=== PATIENT | female | born 1990 | race African-American/Black ===

== ENCOUNTER 2017-04-27 17:29 | Emergency (ER) | payer OTHER ==
[2017-04-27 18:04] VITALS: BP 114/77; PULSE 77; TEMP 97.9; BMI 28.3
--- NOTE | 2017-04-27 18:05 | PDOC ---
Rapid Medical Evaluation Time Seen by Provider: 04/27/17 18:03 Medical Evaluation: Allergies Allergy/AdvReac Type Severity Reaction Status Date / Time ciprofloxacin [From Cipro] AdvReac Verified 09/16/15 18:03 ciprofloxacin HCl AdvReac Verified 09/16/15 18:03 [From Cipro] 04/27/17 18:03 The patient presents with a chief complaint of:~abd pain with + home preg and does not know last menses. I have performed a brief in-person evaluation of this patient; Pertinent physical exam findings: ambulatory, in no respiratory distress ~I have ordered the following:~serum hcg, ua, The patient will proceed to the ED for further evaluation
[2017-04-27 18:43] LABS: URINE APPEARANCE CLOUDY; URINE BILIRUBIN NEGATIVE (NEGATIVE); URINE BLOOD NEGATIVE (NEGATIVE); URINE COLOR YELLOW; URINE GLUCOSE (UA) NEGATIVE (NEGATIVE); URINE KETONE TRACE (NEGATIVE); URINE NITRITE NEGATIVE (NEGATIVE); URINE PROTEIN NEGATIVE (NEGATIVE); URINE UROBILINOGEN NEGATIVE mg/dL (0.2-1.0)
[2017-04-27 18:44] LABS: URINE LEUK ESTERASE 3+ (NEGATIVE)
[2017-04-27 18:49] LABS: EPI CELLS MANY /HPF (FEW); URINE BACTERIA RARE /hpf (NONE SEEN); URINE HYALINE CAST 2 /lpf; URINE MUCUS FEW
--- NOTE | 2017-04-27 19:55 | PDOC ---
History of Present Illness <Asim Nolandica - Last Filed: 04/27/17 21:29> <Ivania Durham - Last Filed: 04/28/17 08:58> - General Chief Complaint: Pain Stated Complaint: PAIN () Time Seen by Provider: 04/27/17 18:03 Past History - Past Medical History COPD: No Psychiatric Problems: Yes (ANXIETY) - Immunization History Td Vaccination: Yes Immunization Up to Date: Yes - Suicide/Smoking/Psychosocial Hx Smoking Status: No Smoking History: Former smoker Years of Tobacco Use: 0 Have you smoked in the past 12 months: Yes Number of Cigarettes Smoked Daily: 4 If you are a former smoker, when did you quit?: 2 MONTHS Cigars Per Day: 0 Information on smoking cessation initiated: Yes 'Breaking Loose' booklet given: 08/28/15 Hx Alcohol Use: No Drug/Substance Use Hx: No Substance Use Type: Alcohol <Asim Nolandica - Last Filed: 04/27/17 21:29> <Ivania Durham - Last Filed: 04/28/17 08:58> - Past Medical History Allergies/Adverse Reactions: Allergies Allergy/AdvReac Type Severity Reaction Status Date / Time ciprofloxacin [From Cipro] AdvReac Verified 04/27/17 18:04 ciprofloxacin HCl AdvReac Verified 04/27/17 18:04 [From Cipro] Home Medications: Ambulatory Orders clonazePAM [Klonopin -] 0.5 mg PO BID 09/16/15 Nitrofurantoin Monohyd/M-Cryst [Macrobid -] 100 mg PO BID #14 capsule 04/27/17 Nitrofurantoin Monohyd/M-Cryst [Macrobid -] 100 mg PO BID #14 capsule 04/28/17 *Physical Exam - Vital Signs Last Vital Signs Temp Pulse Resp BP Pulse Ox 97.9 F 77 18 114/77 100 04/27/17 18:00 04/27/17 18:00 04/27/17 18:00 04/27/17 18:00 04/27/17 18:00 <Asim Nolandica - Last Filed: 04/27/17 21:29> - Vital Signs Last Vital Signs Temp Pulse Resp BP Pulse Ox 97.9 F 77 18 114/77 100 04/27/17 18:00 04/27/17 18:00 04/27/17 18:00 04/27/17 18:00 04/27/17 18:00 <Ivania Durham - Last Filed: 04/28/17 08:58> ED Treatment Course - ADDITIONAL ORDERS Additional order review: Laboratory Results 04/27/17 04/27/17 18:12 18:12 Beta HCG, Quant 3694.4 Urine Color Yellow Urine Appearance Cloudy Urine pH 5.0 Ur Specific [place] 1.029 Urine Protein Negative Urine Glucose (UA) Negative Urine Ketones Trace H Urine Blood Negative Urine Nitrite Negative Urine Bilirubin Negative Urine Urobilinogen Negative Ur Leukocyte Esterase 3+ H Urine WBC (Auto) 38 Urine RBC (Auto) 2 Ur Epithelial Cells Many Urine Bacteria Rare Hyaline Casts 2 Urine Mucus Few - RADIOLOGY Radiology Studies Ordered: Category Date Time Status TRANSVAGINAL US PREG [US] Stat Ultrasound 04/27/17 19:48 Ordered <Maria Luisa Noland - Last Filed: 04/27/17 21:29> Medical Decision Making - Medical Decision Making 04/27/17 20:12 26 y.o. female with 2 day h/o abdominal cramping w/o vaginal bleeding <Maria Luisa Noland - Last Filed: 04/27/17 21:29> *DC/Admit/Observation/Transfer - Discharge Dispostion Admit: No <Maria Luisa Noland - Last Filed: 04/27/17 21:29> <Ivania Durham - Last Filed: 04/28/17 08:58> Diagnosis at time of Disposition: Abdominal cramping - Discharge Dispostion Disposition: HOME Condition at time of disposition: Good - Prescriptions Prescriptions: Nitrofurantoin Monohyd/M-Cryst [Macrobid -] 100 mg PO BID #14 capsule Nitrofurantoin Monohyd/M-Cryst [Macrobid -] 100 mg PO BID #14 capsule - Referrals Referrals: Lisa Bui [Primary Care Provider] - - Patient Instructions Additional Instructions: Please follow up with your [facility] in the next 48 hours for a repeat ultrasound and blood tests. A copy of your ultrasound has been provided to you. Please take this to your follow-up appointment. Your urine showed a small infection. We have prescribed an antibiotic. Please take the entire prescribed course. Do not take any more Xanax, as this can be harmful to the baby. Return to the ED for any new/worsening/concerning symptoms. - Post Discharge Activity
--- NOTE | 2017-04-27 20:03 | PDOC ---
Attending Attestation - Resident Resident Name: Maria Luisa Noland - ED Attending Attestation I have performed the following: I have examined & evaluated the patient, The case was reviewed & discussed with the resident, I agree w/resident's findings & plan, Exceptions are as noted - HPI HPI: 04/27/17 19:59 26 F , with h/o anxiety, presenting to ED with abdominal cramps x 1 day. Pt states that she took a test 2 days ago that was positive. Today began to experience diffuse abdominal cramps, denies any vaginal bleeding. Pt's LMP was about 8 weeks ago. Denies F/C. Denies dysuria. Denies vaginal discharge. Of note, pt was previously on xanax for anxiety but stopped taking it 2 days ago when she found out she was . - Physicial Exam PE: 04/27/17 20:02 "GENERAL: Awake, alert, and fully oriented, in no acute distress HEAD: No signs of trauma EYES: PERRLA, EOMI, sclera anicteric, conjunctiva clear ENT: Auricles normal inspection, hearing grossly normal, nares patent, oropharynx clear without exudates. Moist mucosa NECK: Nontender, no stepoffs, Normal ROM, supple, no lymphadenopathy, JVD, or masses LUNGS: Breath sounds equal, clear to auscultation bilaterally. No wheezes, and no crackles HEART: Regular rate and rhythm, normal S1 and S2, no murmurs, rubs or gallops ABDOMEN: Soft, nontender, normoactive bowel sounds. No guarding, no rebound. No masses EXTREMITIES: Normal range of motion, no edema. No clubbing or cyanosis. No cords, erythema, or tenderness NEUROLOGICAL: Cranial nerves II through XII intact. 5/5 strength and sensation in all extremities, Normal speech, normal gait, normal cerebellar function SKIN: Warm, Dry, normal turgor, no rashes or lesions noted. : os closed, no bleeding, no CMT, no adnexal masses - Medical Decision Making 04/27/17 20:02 26 F @ 8 weeks by LMP, presenting with abdominal cramps. Will r/o ectopic and UTI. Pt with benign abdomen, no RLQ tenderness to suggest acute appy. - Labs, UA, UCx, HCG - TVUS 04/27/17 21:25 TVUS shows gestational sac without yolk sac or pole. Pt with UTI Pt counseled on need for repeat blood tests and US in 48 hours. Also counseled on importance of refraining from taking Xanax. Will DC with OB f/u and macrobid for UTI. Pt well appearing with normal vitals, clinically stable for DC. I discussed the physical exam findings, ancillary test results and final diagnoses with the patient. I answered all of the patient's questions. The patient was satisfied with the care received and felt comfortable with the discharge plan and treatment plan. The patient agrees to follow up with the primary care physician within 24-72 hours.
[2017-04-27] MEDS ORDERED: ACETAMINOPHEN 500 MG TABLET (FP) PO ONE (21:34)
== END 2017-04-27 21:37 | disposition home or self-care (01) ==
LOC: JER 17:29
DX: O26.891 Other specified pregnancy related conditions, first trimester (principal); Z3A.00 Weeks of gestation of pregnancy not specified; R10.2 Pelvic and perineal pain
CPT/HCPCS: 36415; 76817-TC; 81003; 81015; 84702; 86850; 86900; 86901; 99283-25

== ENCOUNTER 2020-12-27 12:37 | Inpatient (IN) | payer OTHER ==
[2020-12-27] MEDS ORDERED: SODIUM CHLORIDE 2,449 ML IV ONE (13:03)
[2020-12-27] MEDS ORDERED: ACETAMINOPHEN 1000 MG/100 ML VIAL IVPB ONE (13:06)
[2020-12-27] MEDS ORDERED: ACETAMINOPHEN INJECTION 100 ML IVPB ONE ×2 (13:12→22:32)
[2020-12-27 13:47] LABS: INR 1.32 (0.83-1.09); PROTHROMBIN TIME (PATIENT) 14.8 SEC (9.7-13.0)
[2020-12-27 13:49] LABS: ACTIVATED PTT 27.6 SECONDS (25.2-36.5)
[2020-12-27 13:52] LABS: HEMATOCRIT 35.8 % (32.4-45.2); HEMOGLOBIN 11.6 GM/dL (10.7-15.3); MCH 28.3 pg (25.7-33.7); MCHC 32.4 g/dl (32.0-36.0); MEAN CELL VOLUME 87.5 fl (80-96); MEAN PLT VOLUME 9.6 fl (7.5-11.1); PLATELET COUNT 221 10^3/uL (134-434); RDW 14.1 % (11.6-15.6); WHITE BLOOD COUNT 18.1 K/mm3 (4.0-10.0)
[2020-12-27 13:55] LABS: CHLORIDE 105 mmol/L (98-107); SODIUM 138 mmol/L (136-145)
[2020-12-27 13:57] LABS: CALCIUM 8.8 mg/dL (8.5-10.1)
[2020-12-27 13:58] LABS: ALBUMIN 3.8 g/dl (3.4-5.0); ANION GAP 8 MMOL/L (8-16); BLOOD UREA NITROGEN 13.1 mg/dL (7-18); CO2 24 mmol/L (21-32); GLUCOSE,RANDOM 89 mg/dL (74-106)
[2020-12-27 14:01] LABS: SGOT/AST 15 U/L (15-37); SGPT/ALT 15 U/L (13-61)
[2020-12-27 14:02] LABS: BILIRUBIN,TOTAL 0.5 mg/dL (0.2-1)
[2020-12-27 14:03] LABS: TOT PROT 7.4 g/dl (6.4-8.2)
[2020-12-27 14:04] LABS: ALK PHOS 52 U/L (45-117)
[2020-12-27] MEDS ORDERED: CLINDAMYCIN 900 MG PREMIX IVPB 900 MG/50 ML BAG IVPB ONE ×3 (14:18→21:17)
[2020-12-27] MEDS ORDERED: SODIUM CHLORIDE 0.9% 500 ML INFUS.BAG IV ONE (14:25)
[2020-12-27 14:28] LABS: ANISOCYTOSIS 0; HELMET CELLS 0; HOWELL-JOLLY BODIES 0; MACROCYTOSIS 0; OVALOCYTE 0; PLATELET ESTIMATE NORMAL; ROULEAU 0; SICKELED CELLS 0; TARGET CELLS 0; TEAR DROP CELLS 0; TOXIC GRANULATION 0
[2020-12-27] MEDS ORDERED: WATER IVPB ONE (14:45)
[2020-12-27] MEDS ORDERED: DEXTROSE 5% IVPB ONE (14:45)
[2020-12-27] MEDS ORDERED: GENTAMICIN IVPB ONE (14:45)
[2020-12-27 16:09] LABS: URINE APPEARANCE CLEAR; URINE BILIRUBIN NEGATIVE (NEGATIVE); URINE COLOR YELLOW; URINE GLUCOSE (UA) NEGATIVE (NEGATIVE); URINE KETONE NEGATIVE (NEGATIVE); URINE LEUK ESTERASE NEGATIVE (NEGATIVE); URINE NITRITE NEGATIVE (NEGATIVE); URINE PROTEIN NEGATIVE (NEGATIVE); URINE UROBILINOGEN 0.2 mg/dL (0.2-1.0)
[2020-12-27] MEDS ORDERED: GENTAMICIN INJECTION 120 MG in DEXTROSE 5%-WATER - 100 ML IVPB SCH ×2 (20:45→21:30)
[2020-12-27] MEDS ORDERED: GENTAMICIN SO4 80 MG/2 ML VIAL ONE (21:15)
[2020-12-27] MEDS ORDERED: GENTAMICIN 80 MG PREMIXED IVPB 80 MG/100 ML BAG IVPB ONE (21:16)
[2020-12-27] MEDS: SODIUM CHLORIDE 1,000 ML IV SCH (21:23)
[2020-12-27] MEDS ORDERED: clonazePAM 0.5 MG TABLET PO PRN (22:14)
[2020-12-27] MEDS: CLINDAMYCIN 900 MG PREMIX IVPB 900 MG/50 ML BAG IVPB SCH (22:15)
[2020-12-27] MEDS ORDERED: morphine SULFATE 4 MG/ML VIAL ONE (22:23)
[2020-12-27] MEDS ORDERED: clonazePAM 0.5 MG TABLET ONE (22:23)
[2020-12-27] MEDS: morphine SULFATE 4 MG/ML VIAL IVPUSH PRN (22:35)
[2020-12-27] MEDS: ACETAMINOPHEN 1000 MG/100 ML VIAL IVPB PRN (22:36)
[2020-12-28] MEDS: CLINDAMYCIN 900 MG PREMIX IVPB 900 MG/50 ML BAG IVPB SCH ×2 (03:05→11:10)
[2020-12-28] MEDS ORDERED: CLINDAMYCIN 900 MG PREMIX IVPB 900 MG/50 ML BAG IVPB ONE ×2 (03:57→10:25)
[2020-12-28] MEDS ORDERED: morphine SULFATE 4 MG/ML VIAL ONE ×4 (06:34→21:10)
[2020-12-28] MEDS: morphine SULFATE 4 MG/ML VIAL IVPUSH PRN ×4 (06:38→21:25)
[2020-12-28] MEDS ORDERED: ACETAMINOPHEN INJECTION 100 ML IVPB ONE ×2 (06:51→13:41)
[2020-12-28] MEDS: ACETAMINOPHEN 1000 MG/100 ML VIAL IVPB PRN ×2 (06:55→13:44)
[2020-12-28] MEDS ORDERED: GENTAMICIN INJECTION 120 MG in DEXTROSE 5%-WATER - 100 ML IVPB SCH ×2 (10:00→15:00)
[2020-12-28] MEDS ORDERED: ENOXAPARIN NA (PORCINE) 40 MG/0.4 ML DISP.SYRIN SQ ONE (10:26)
[2020-12-28] MEDS: ENOXAPARIN NA (PORCINE) 40 MG/0.4 ML DISP.SYRIN SQ SCH (11:00)
[2020-12-28] MEDS ORDERED: CEFOTETAN DISODIUM 2 GM in DEXTROSE 5%-WATER - 100 ML IVPB SCH (12:45)
[2020-12-28] MEDS ORDERED: DOXYCYCLINE HYCLATE 100 MG VIAL ONE ×2 (13:20→22:14)
[2020-12-28 13:25] LABS: CALCIUM 7.6 mg/dL (8.5-10.1)
[2020-12-28 13:26] LABS: BLOOD UREA NITROGEN 6.5 mg/dL (7-18); MAGNESIUM 1.7 mg/dL (1.8-2.4)
[2020-12-28 13:29] LABS: CREATININE 0.9 mg/dL (0.55-1.3); PHOSPHOROUS 1.6 mg/dL (2.5-4.9)
[2020-12-28 13:30] LABS: BILIRUBIN,TOTAL 0.3 mg/dL (0.2-1); TOT PROT 6.1 g/dl (6.4-8.2)
[2020-12-28] MEDS: DOXYCYCLINE INJECTION 100 MG in DEXTROSE 5%-WATER 100 ML IVPB SCH ×2 (13:31→22:16)
[2020-12-28 13:39] LABS: HEMOGLOBIN 11.1 GM/dL (10.7-15.3); MCH 28.6 pg (25.7-33.7); MCHC 32.5 g/dl (32.0-36.0); MEAN PLT VOLUME 10.6 fl (7.5-11.1); PLATELET COUNT 170 10^3/uL (134-434); RBC 3.87 M/mm3 (3.60-5.2); RDW 14.3 % (11.6-15.6); WHITE BLOOD COUNT 15.4 K/mm3 (4.0-10.0)
[2020-12-28 14:19] LABS: HIV INTERPRETATION NEGATIVE (NEGATIVE)
[2020-12-28] MEDS ORDERED: MAGNESIUM OXIDE 400 MG TABLET (FP) PO ONE (14:24)
[2020-12-28] MEDS ORDERED: POTASSIUM CHLORIDE TABS 20 MEQ TABLET.ER (FP) PO ONE ×2 (14:24→16:28)
[2020-12-28 14:54] LABS: ANISOCYTOSIS 0; HELMET CELLS 0; HOWELL-JOLLY BODIES 0; MACROCYTOSIS 0; OVALOCYTE 0; PLATELET ESTIMATE NORMAL; ROULEAU 0; SICKELED CELLS 0; TARGET CELLS 0; TEAR DROP CELLS 0; TOXIC GRANULATION 0
[2020-12-28] MEDS ORDERED: CEFOXITIN SODIUM 2 GM in DEXTROSE 5%-WATER 100 ML IVPB SCH (15:00)
[2020-12-28] MEDS ORDERED: MAGNESIUM OXIDE 400 MG TABLET (FP) ONE (16:29)
[2020-12-28] MEDS: CEFOXITIN SODIUM 2 GM in DEXTROSE 5%-WATER 100 ML IVPB SCH ×2 (17:41→22:51)
[2020-12-28] MEDS ORDERED: ACETAMINOPHEN 325 MG TABLET (FP) ONE (20:43)
[2020-12-28] MEDS: SODIUM CHLORIDE 1,000 ML IV SCH (20:53)
[2020-12-28] MEDS: ACETAMINOPHEN 325 MG TABLET (FP) PO PRN (20:53)
[2020-12-28] MEDS ORDERED: DEXTROSE 5%-WATER 100 ML IVPB ONE (22:14)
[2020-12-28] MEDS: SENNOSIDES 8.6MG TABLET (FP) PO SCH ×2 (22:17→22:21)
[2020-12-28] MEDS ORDERED: SODIUM CHLORIDE 500 ML IV STA (22:33)
[2020-12-28 22:40] VITALS: BMI 26.3
[2020-12-29] MEDS ORDERED: IBUPROFEN 400 MG TABLET (FP) PO ONE ×2 (01:00→23:17)
[2020-12-29] MEDS: morphine SULFATE 4 MG/ML VIAL IVPUSH PRN ×3 (01:24→19:54)
[2020-12-29] MEDS: ACETAMINOPHEN 325 MG TABLET (FP) PO PRN ×3 (02:59→19:57)
[2020-12-29] MEDS: CEFOXITIN SODIUM 2 GM in DEXTROSE 5%-WATER 100 ML IVPB SCH ×4 (04:17→20:38)
[2020-12-29 08:33] LABS: BASO % 0.4 % (0-2.0); HEMATOCRIT 34.5 % (32.4-45.2); HEMOGLOBIN 11.5 GM/dL (10.7-15.3); LYMPH % 8.2 % (8-40); MCH 29.1 pg (25.7-33.7); MCHC 33.4 g/dl (32.0-36.0); MEAN PLT VOLUME 9.7 fl (7.5-11.1); NEUT % 89.4 % (42.8-82.8); PLATELET COUNT 156 10^3/uL (134-434); RBC 3.96 M/mm3 (3.60-5.2); RDW 14.3 % (11.6-15.6); WHITE BLOOD COUNT 8.3 K/mm3 (4.0-10.0)
[2020-12-29] MEDS ORDERED: DOXYCYCLINE HYCLATE 100 MG VIAL ONE ×2 (09:31→20:28)
[2020-12-29] MEDS ORDERED: DEXTROSE 5%-WATER 100 ML IVPB ONE (09:31)
[2020-12-29] MEDS ORDERED: PT OWN MED DRAWER 7, Y5N ONE ×3 (09:32→20:28)
[2020-12-29 09:47] LABS: MAGNESIUM 1.8 mg/dL (1.8-2.4)
[2020-12-29 09:48] LABS: ALBUMIN 2.6 g/dl (3.4-5.0)
[2020-12-29 09:49] LABS: CREATININE 0.9 mg/dL (0.55-1.3)
[2020-12-29] MEDS: ENOXAPARIN NA (PORCINE) 40 MG/0.4 ML DISP.SYRIN SQ SCH (09:49)
[2020-12-29 09:51] LABS: BILIRUBIN,TOTAL 0.2 mg/dL (0.2-1); TOT PROT 5.9 g/dl (6.4-8.2)
[2020-12-29] MEDS: DOXYCYCLINE INJECTION 100 MG in DEXTROSE 5%-WATER 100 ML IVPB SCH ×2 (11:29→21:15)
[2020-12-29] MEDS ORDERED: POTASSIUM CHLORIDE TABS 20 MEQ TABLET.ER (FP) PO ONE (12:00)
[2020-12-29] MEDS: SODIUM CHLORIDE 1,000 ML IV SCH (21:14)
[2020-12-29] MEDS: SENNOSIDES 8.6MG TABLET (FP) PO SCH (21:15)
[2020-12-30] MEDS: morphine SULFATE 4 MG/ML VIAL IVPUSH PRN ×3 (01:53→17:25)
[2020-12-30] MEDS ORDERED: ACETAMINOPHEN 1000 MG/100 ML VIAL IVPB ONE (02:00)
[2020-12-30] MEDS: CEFOXITIN SODIUM 2 GM in DEXTROSE 5%-WATER 100 ML IVPB SCH ×4 (02:46→20:48)
[2020-12-30] MEDS ORDERED: DOXYCYCLINE HYCLATE 100 MG VIAL ONE ×2 (09:36→20:22)
[2020-12-30] MEDS ORDERED: DEXTROSE 5%-WATER 100 ML IVPB ONE ×2 (09:37→20:22)
[2020-12-30] MEDS ORDERED: PT OWN MED DRAWER 7, Y5N ONE ×3 (09:37→20:23)
[2020-12-30] MEDS: DOXYCYCLINE INJECTION 100 MG in DEXTROSE 5%-WATER 100 ML IVPB SCH ×2 (09:41→21:07)
[2020-12-30] MEDS: ENOXAPARIN NA (PORCINE) 40 MG/0.4 ML DISP.SYRIN SQ SCH (09:41)
[2020-12-30] MEDS: SODIUM CHLORIDE 1,000 ML IV SCH (10:00)
[2020-12-30] MEDS: ACETAMINOPHEN 325 MG TABLET (FP) PO PRN (15:01)
[2020-12-30] MEDS ORDERED: IBUPROFEN 600 MG TABLET (FP) PO ONE (17:30)
[2020-12-30] MEDS: SENNOSIDES 8.6MG TABLET (FP) PO SCH (21:07)
[2020-12-31] MEDS: CEFOXITIN SODIUM 2 GM in DEXTROSE 5%-WATER 100 ML IVPB SCH ×4 (03:17→22:21)
[2020-12-31] MEDS: ACETAMINOPHEN 325 MG TABLET (FP) PO PRN (06:33)
[2020-12-31 08:54] LABS: BASO % 0.3 % (0-2.0); HEMATOCRIT 32.6 % (32.4-45.2); HEMOGLOBIN 11.1 GM/dL (10.7-15.3); LYMPH % 15.9 % (8-40); MCH 28.7 pg (25.7-33.7); MEAN CELL VOLUME 84.4 fl (80-96); MONO % 10.2 % (3.8-10.2); NEUT % 71.6 % (42.8-82.8); PLATELET COUNT 172 10^3/uL (134-434); RBC 3.86 M/mm3 (3.60-5.2); RDW 14.7 % (11.6-15.6); WHITE BLOOD COUNT 8.1 K/mm3 (4.0-10.0)
[2020-12-31] MEDS ORDERED: DOXYCYCLINE HYCLATE 100 MG VIAL ONE ×2 (09:08→23:24)
[2020-12-31] MEDS ORDERED: DEXTROSE 5%-WATER 100 ML IVPB ONE (09:08)
[2020-12-31] MEDS: morphine SULFATE 4 MG/ML VIAL IVPUSH PRN ×3 (09:23→23:31)
[2020-12-31] MEDS: DOXYCYCLINE INJECTION 100 MG in DEXTROSE 5%-WATER 100 ML IVPB SCH ×2 (09:25→23:28)
[2020-12-31] MEDS: ENOXAPARIN NA (PORCINE) 40 MG/0.4 ML DISP.SYRIN SQ SCH (09:25)
[2020-12-31 09:32] LABS: ALBUMIN 2.9 g/dl (3.4-5.0); BLOOD UREA NITROGEN 9.1 mg/dL (7-18); CALCIUM 8.3 mg/dL (8.5-10.1); MAGNESIUM 2.1 mg/dL (1.8-2.4)
[2020-12-31] MEDS ORDERED: PT OWN MED DRAWER 7, Y5N ONE ×2 (09:33→14:59)
[2020-12-31 09:36] LABS: BILIRUBIN,TOTAL 0.9 mg/dL (0.2-1); CREATININE 0.8 mg/dL (0.55-1.3)
[2020-12-31 09:37] LABS: TOT PROT 6.9 g/dl (6.4-8.2)
[2020-12-31] MEDS ORDERED: IBUPROFEN 200 MG TABLET PO PRN (19:09)
[2020-12-31] MEDS ORDERED: BENZOCAINE/MENTH/CETYLPYRD CL 1 EACH LOZENGE MM PRN (22:19)
[2020-12-31] MEDS: SENNOSIDES 8.6MG TABLET (FP) PO SCH (22:33)
[2021-01-01] MEDS: CEFOXITIN SODIUM 2 GM in DEXTROSE 5%-WATER 100 ML IVPB SCH ×2 (04:00→12:56)
[2021-01-01 08:51] LABS: BASO % 0.5 % (0-2.0); EOS % 2.1 % (0-4.5); HEMOGLOBIN 10.4 GM/dL (10.7-15.3); LYMPH % 39.2 % (8-40); MCH 28.6 pg (25.7-33.7); MCHC 33.6 g/dl (32.0-36.0); MEAN CELL VOLUME 85.1 fl (80-96); MEAN PLT VOLUME 10.5 fl (7.5-11.1); MONO % 12.9 % (3.8-10.2); NEUT % 45.3 % (42.8-82.8); PLATELET COUNT 176 10^3/uL (134-434); RBC 3.64 M/mm3 (3.60-5.2); RDW 14.7 % (11.6-15.6); WHITE BLOOD COUNT 5.5 K/mm3 (4.0-10.0)
[2021-01-01] MEDS ORDERED: DOXYCYCLINE HYCLATE 100 MG VIAL ONE (09:37)
[2021-01-01] MEDS ORDERED: DEXTROSE 5%-WATER 100 ML IVPB ONE (09:37)
[2021-01-01 09:38] LABS: BLOOD UREA NITROGEN 9.7 mg/dL (7-18)
[2021-01-01 09:39] LABS: ALBUMIN 2.8 g/dl (3.4-5.0); CALCIUM 8.6 mg/dL (8.5-10.1); MAGNESIUM 2.2 mg/dL (1.8-2.4)
[2021-01-01 09:43] LABS: CREATININE 0.8 mg/dL (0.55-1.3); TOT PROT 6.5 g/dl (6.4-8.2)
[2021-01-01 09:44] LABS: BILIRUBIN,TOTAL 0.2 mg/dL (0.2-1)
[2021-01-01] MEDS: DOXYCYCLINE INJECTION 100 MG in DEXTROSE 5%-WATER 100 ML IVPB SCH (10:00)
[2021-01-01] MEDS: ENOXAPARIN NA (PORCINE) 40 MG/0.4 ML DISP.SYRIN SQ SCH (10:01)
[2021-01-01 15:28] VITALS: BP 118/59; PULSE 74; TEMP 98.9
[2021-01-02] MEDS ORDERED: metroNIDAZOLE 250 MG TABLET PO SCH (10:00)
[2021-01-02] MEDS ORDERED: DOXYCYCLINE HYCLATE 100 MG CAPSULE PO SCH (10:00)
[2021-01-02] MEDS ORDERED: LACTOBACILLUS ACIDOPHILUS 1 TABLET PO SCH (10:00)
== END 2021-01-01 16:38 | disposition home or self-care (01) | DRG 720 ==
LOC: JER 12:37 → JERBED 18:53 → J8W 12-28 21:52
PROVIDERS: ATTEND Nurse Practitioner Acute Care
PROC: 0UPDXHZ Removal of Contraceptive Device from Uterus and Cervix, External Approach (ICD-10-PCS; principal; 2020-12-30)
DX: A41.9 Sepsis, unspecified organism (principal); N73.0 Acute parametritis and pelvic cellulitis; F41.9 Anxiety disorder, unspecified; Z97.5 Presence of (intrauterine) contraceptive device; N73.5 Female pelvic peritonitis, unspecified; E87.6 Hypokalemia
CPT/HCPCS: 36415; 71045-TC-FY; 74177-TC; 76830-TC; 80053; 81003; 82150; 83605; 83690; 83735; 84100; 84484; 84703; 85025; 85610; 85730; 87040; 87070; 87086; 87110; 87186; 87389; 87491; 87591; 93005; 93010; 99285-25; C9803; J0131; Q9967; U0003; U0005

== ENCOUNTER 2023-08-09 13:18 | Emergency (ER) | payer OTHER ==
[2023-08-09 13:30] VITALS: BP 100/62; PULSE 77; RESP 20; TEMP 98.4
[2023-08-09] MEDS ORDERED: KETOROLAC TROMETHAMINE 30 MG/1 ML VIAL ONE (14:56)
[2023-08-09] MEDS: KETOROLAC TROMETHAMINE 30 MG/1 ML VIAL IM ONE (15:01)
[2023-08-09] MEDS: LIDOCAINE 4% PATCH TP ONE (15:02)
[2023-08-09] MEDS ORDERED: LIDOCAINE 4% PATCH TP ONE (15:05)
[2023-08-09] MEDS ORDERED: LIDOCAINE PATCH REMOVAL MC SCH (22:00)
== END 2023-08-09 16:30 | disposition home or self-care (01) ==
LOC: JERFT 13:18
PROC: 3E0133Z Introduction of Anti-inflammatory into Subcutaneous Tissue, Percutaneous Approach (ICD-10-PCS; principal; 2023-08-09)
DX: M25.511 Pain in right shoulder (principal); M79.622 Pain in left upper arm; M79.604 Pain in right leg; M79.605 Pain in left leg; R07.9 Chest pain, unspecified; V43.53XA Car driver injured in collision with pick-up truck in traffic accident, initial encounter
CPT/HCPCS: 71046-TC-FY; 73030-TC-RT-FY; 73070-TC-RT-FY; 99284-25